=== PATIENT | male | born 1965 | race African-American/Black ===

== ENCOUNTER 2023-04-16 13:37 | Observation (INO) | payer OTHER ==
[~2023-04-16] VITALS: Ht 185.4 cm; Wt 86.0 kg
[2023-04-16] VITALS (12 sets, daily range): BP systolic 153–212; BP diastolic 80–99; PULSE 56–72; TEMP 97.3–98.7
--- NOTE | 2023-04-16 13:05 | NUR ---
PT ADMITTED FROM [facility] FOR A HERNIA. PT IS AXOX4. PT IS ON RA. PT IS INDEPENDENT. PT ORIENTED TO ROOM AND FLOOR. PT'S GF LAKISHA BEDSIDE. PT INSTRUCTED ON NPO STATUS. PT GIVEN CALL LIGHT AND INSTRUCTED TO CALL [facility] ALL NEEDS. PT IS HYPERTENSIVE, OTHER VSS. PT WAS HYPERTENSIVE AT [facility] D/T PAIN. PT DENIES N/V. 1325- CALLED REGARDING ADMISSION. DR IN OR, CIRCULATING RN RELAYED MESSAGE. 1335- CALLED THIS RN WITH ORDERS. NOTIFIED HIM OF HTN. MOST LIKELY RELATED TO PAIN.
[2023-04-16] MEDS ORDERED: BC PAIN RLF 841 EACH PO (13:42)
--- NOTE | 2023-04-16 17:55 | NUR ---
PT BACK FROM OR. PT IS LETHARGIC BUT OPENES EYES TO VOICE AND ANSWERS APPROPRIATELY. PT IS ON RA. PT HAS BEEN HYPERTENSIVE SINCE AND ADMISSION. BP IS COMING DOWN. PT HAS 3 LAP SITE, 2 MARKETING COPYWRITER, 1 BANDAID. ALL C/D/I. GAUZE AND MEDIPORT TAPE TO STOMACH MIDLINE TO APPLY PRESSURE. PT HAS WATER AND ICE BEDSIDE. CALL LIGHT GIVEN AND PT INSTRUCTED TO CALL [facility] ALL NEEDS.
--- NOTE | 2023-04-16 18:29 | NUR ---
PT UP TO THE RESTROOM TO VOID. PT AMBUALTED WITH STAND BY ASSIST. PT BACK TO BED. PT GIVEN CALL LIGHT AND INSTRUCTED TO CALL WITH ALL NEEDS.
--- NOTE | 2023-04-16 20:30 | NUR ---
PT HAS EMESIS, DENIES NEED FOR PAIN MEDS. HAS ROBOTIC SITES X3 TO LT ABD AND SMALL PRESSURE DRSG TO UMBILICUS WITHOUT INCISION BENEATH. TAKING CLEAR LIQUIDS FAIR. IVF TO RAC INFUSING WITHOUT PROBLEM. S.O AT BEDSIDE. REMAINS ON POST OP VITALS.
--- NOTE | 2023-04-16 21:45 | NUR ---
NEW BAG IVF HUNG, PT RESTING DENIES NEEDS AT THIS TIME.
[2023-04-17 00:22] VITALS: BP_SYST 163
--- NOTE | 2023-04-17 00:30 | NUR ---
PT RESTING IN BED, NO FURTHER NAUSEA. DENIES NEED FOR PAIN MEDS AT THIS TIME.
[2023-04-17 04:00] VITALS: BP 154/96; PULSE 65; TEMP 98.1
--- NOTE | 2023-04-17 05:08 | NUR ---
PT AWAKE, HAS BEEN UP TO VOID. DENIES PAIN, REPORTS "SORENESS" AT UMBILICUS. NO FURTHER NAUSEA.
[2023-04-17 06:15] LABS: HEMATOCRIT 40.2 % (42.0-52.0); MEAN CELL VOLUME 91 fl (80.0-100.0); MEAN CORPUSCULAR HEMOGLOBIN 32 pg (27-31); MEAN CORPUSCULAR HGB CONC 35 g/dl (33.0-37.0); MEAN PLATELET VOLUME 11.1 fl (7.4-10.4); PLATELET COUNT 141 K/mm3 (130-400); RED BLOOD COUNT 4.42 M/mm3 (4.20-5.60); REDCELL DISTRIBUTION WIDTH-CV 12.4 % (11.5-14.5)
[2023-04-17 06:24] LABS: CALCIUM 8.5 mg/dL (8.4-10.2); CREATININE, serum 1.04 mg/dL (0.72-1.25); POTASSIUM 3.9 mmol/L (3.5-4.5)
--- NOTE | 2023-04-17 07:09 | NUR ---
Shift report received from RENETTA Pepper.
[2023-04-17 07:18] VITALS: BP 149/85; PULSE 66; TEMP 98.6
--- NOTE | 2023-04-17 08:02 | NUR ---
Patient awake in bed upon entry room. IVF fluiding infusing on right A/C, and saline lock per orders. 3 lap site at the abdomen intact. Patient c/o mild pressure at incision site. Bowel sound audible and patient states he has been passing gas. No episode of n/v. Patient diet changed to low fiber per Doctor's orders. Call arizmendi in reach.
[2023-04-17 09:00] VITALS: BP_SYST 149
[2023-04-17] MEDS ORDERED: TURMERIC500 MG PO (09:28)
[2023-04-17] MEDS ORDERED: GINGER500 MG PO (09:28)
[2023-04-17] MEDS ORDERED: FLAXSEED OIL1000 MG PO (09:29)
[2023-04-17] MEDS ORDERED: NORCO 325 MG-51 TAB PO (09:32)
[2023-04-17 11:03] VITALS: BP 175/94; PULSE 54; TEMP 99.1
--- NOTE | 2023-04-17 12:22 | NUR ---
Od Grinder Operator met with Patient and dignificant other at bedside to conduct Care Managment Assessment and discuss discharge planning. Patient lives in [place], [place] having recently moved from [place]. Patient states that he is in the process of establishing PCP through the [facility] and states that his goal when discharged is to continue that process. Patient is covered by [place] [employer] for insurance. Patient denies the use of DME prior to admission and endorses independency with ADL/IADLs prior to admission. Patient's significant other states that Patient has 21 stairs to enter the home on the third floor and inquires if that may be and issue. Patient reports that he does not anticipate having an issue with the stairs and id not concerned about his ability to enter his home when discharged. Patient states to not have DPOAHC and reports that [facility] Discahrge Plan: Home
--- NOTE | 2023-04-17 12:58 | NUR ---
Initial visit; Patient thanked Backing In Machine Tender for stopping by and states he is doing better. Backing In Machine Tender offered Mike God's blessings and a 'get-well' message.
[2023-04-17 13:00] VITALS: BP_SYST 175
--- NOTE | 2023-04-17 14:09 | NUR ---
Discharge instruction given, INT discontinued. Patient has no other questions. Patient escorted out of the unit to car accompanied by significant other.
== END 2023-04-17 14:00 | disposition home or self-care (01) ==
LOC: SURG 13:37
PROVIDERS: ADMIT Surgery
DX: K43.6 Other and unspecified ventral hernia with obstruction, without gangrene (principal)
CPT/HCPCS: G0378; G0379; J0360; J0690; J1170; J1885; J2405; J2704; J3010; J7030